=== PATIENT | female | born 1990 | race Caucasian/White ===

== ENCOUNTER 2016-10-31 12:25 | Outpatient (CLI) | payer OTHER | END 2016-10-31 15:40 | disposition home or self-care (01) | LOC: 2LDRP 12:25 → WOR 12:25 → BC 12:25 → 2LDRP 15:40 → BC 15:40 | DX: O99.89 Other specified diseases and conditions complicating pregnancy, childbirth and the puerperium (principal); R10.9 Unspecified abdominal pain; Z3A.33 33 weeks gestation of pregnancy ==

== ENCOUNTER 2016-11-04 17:00 | Outpatient (CLI) | payer OTHER ==
[~2016-11-04] VITALS: Ht 162.6 cm; Wt 58.1 kg
== END 2016-11-04 22:25 | disposition home or self-care (01) ==
LOC: 2LDRP 17:00 → BC 17:00
DX: O47.03 False labor before 37 completed weeks of gestation, third trimester (principal); Z3A.34 34 weeks gestation of pregnancy